=== PATIENT | female | born 1990 | race African-American/Black ===

== ENCOUNTER 2018-01-10 12:34 | Emergency (ER) | payer MEDICAID, MEDICARE ==
[~2018-01-10] VITALS: Ht 157.5 cm; Wt 72.6 kg
[2018-01-10] MEDS ORDERED: Ketorolac 30mg Inj IV ONE (12:45)
[2018-01-10] MEDS ORDERED: Morphine Sulfate 2mg/ml Inj IVP ONE (12:45)
--- NOTE | 2018-01-10 12:50 | Emergency Room Report ---
History of Present Illness General Chief Complaint: Nausea Source: Patient Present Illness HPI 28-year-old female patient presents ER brought in by ambulance complaining of vomiting for the past 4 days. Patient reports epigastric pain during this time. Patient states that she was in a restaurant attempting to eat some food when the symptoms became worse and she had to call the ambulance. Denies coffee -ground emesis or hematemesis. Reports sore throat during this time. reports has been able to keep small amount of water down briefly before vomiting again. States has not taken any medications for relief of symptoms. Denies history of similar symptoms. Denies close contacts with similar symptoms. Denies diarrhea or constipation. Past history of GI problems. Denies history of acid reflux. Denies fever, chest pain, shortness of breath. Report headache and dizziness symptoms that began after vomiting onset. Denies , states she has not been sexually active for "a while". Denies drinking, drugs, smoking marijuana. Denies other acute symptoms. Denies dysuria, hematuria. reports history of MS, not taking any medications currently, states is being followed by her physician for MS symptoms and treatment. Allergies: Coded Allergies: No Known Allergies (Unverified , 01/10/18) Patient History Past Medical History: see triage record Last Menstrual Period: 12/2017 Reviewed Nursing Documentation: PMH: Agreed; PSxH: Agreed Nursing Documentation-PMH Past Medical History: No History, Except For Review of Systems All Other Systems: negative except mentioned in HPI Physical Exam Vital Signs Date Time Temp Pulse Resp B/P (MAP) Pulse Ox O2 Delivery O2 Flow Rate FiO2 01/10/18 12:29 98.1 93 16 111/82 99 Room Air Sp02 EP Interpretation: reviewed, normal General Appearance: well appearing, no apparent distress, alert, GCS 15, non- toxic Head: normocephalic, atraumatic Eyes: bilateral eye normal inspection, bilateral eye PERRL, bilateral eye EOMI ENT: hearing grossly normal, normal pharynx, no angioedema, normal voice, TMs + canals normal, uvula midline, moist mucus membranes Neck: full range of motion Respiratory: lungs clear, normal breath sounds, no rhonchi, no respiratory distress, no accessory muscle use, no wheezing, speaking full sentences Cardiovascular #1: regular rate, rhythm, no edema Gastrointestinal: normal bowel sounds, soft, no mass, non-distended, tenderness - generalized, diffuse Genitourinary: no CVA tenderness Musculoskeletal: back normal, digits/nails normal, gait/station normal, normal range of motion, non-tender Neurologic: alert, oriented x3, responsive, motor strength/tone normal, sensory intact Psychiatric: mood/affect normal Skin: no rash Lymphatic: no adenopathy Medical Decision Making PA Attestation Dr. Sumner is my supervising Physician whom patient management has been discussed with. Diagnostic Impression: Primary Impression: Vomiting Additional Impression: Abdominal pain ER Course Pt. presents to the ED c/o abdominal pain and vomiting. Ddx considered but are not limited to UTI, cholelithiasis, cholecystitis, pancreatitis, appendicitis, diverticulitis, constipation, drug use, esophagitis. negative Rivers sign, patient afebrile, no jaundice, low suspicion for cholecystitis, will not order ultrasound at this time. Begin abdominal pain workup. Provided patient with pain medication. Vital signs: are WNL, pt. is afebrile ORDERS: CBC, CMP, Lipase, UA, CT abdomen pelvis, Zofran, Pepcid and medication. ER COURSE: CBC unremarkable, H&H normal CMP unremarkable, no elevation in LFTS Lipase WNL UA negative for infection, elevated urobilogen noted, denies urinary complaints , low suspicion for UTI, does not require treatment at this time. Urine negative urine drug screen negative except for opioids, likely positive due to or pain provide the patient in ER. Discuss results with patient Provided with capsaicin cream and further pepcid. CT abdomen and pelvis with contrast shows no acute findings, normal appendix patient able tolerate by mouth fluids while in ER. Reports pain symptoms have improved. Patient resting in bed, watching videos on cell phone, nontoxic appearing, in no acute distress. will provide patient with medication at discharge. Informed patient she needs to follow up with primary care provider and discuss referral to GI specialist. Provide with with contact information for [facility] clinics, contact insurance to establish care with primary care provider. Needs further GI evaluation and testing to rule out PUD, H.pylori and other underlying etiology of symptoms. DISCHARGE: Rx provided for Tylenol Rx provided for Zofran Rx provided for Pepcid At this time pt. is stable for d/c to home. Patient resting comfortably, in no acute distress, nontoxic appearing, talking without difficulty. Rx provided to patient. Patient to take medications as instructed Will provide with patient care instructions and any necessary prescriptions. Care plan and follow-up instructions provided. Patient instructed to follow-up with primary care provider in 3 - 5 days. Patient questions asked and answered. Patient reports understanding and agreement to treatment plan. ER precautions given. Patient instructed to return to ER immediately for any new or worsening of symptoms including but not limited to increasing SOB, persistent fever, worsening of pain symptoms, intractable vomiting, blood in stool, urine, and/or emesis. - Please note that this Emergency Department Report was dictated using [employer]forensic identification specialist technology software, occasionally this can lead to erroneous entry secondary to interpretation by the dictation equipment. Labs Test 01/10/18 13:00 01/10/18 15:35 White Blood Count 8.5 K/UL (4.8-10.8) Red Blood Count 4.80 M/UL (4.20-5.40) Hemoglobin 13.7 G/DL (12.0-16.0) Hematocrit 42.5 % (37.0-47.0) Mean Corpuscular Volume 89 FL (80-99) Mean Corpuscular Hemoglobin 28.6 PG (27.0-31.0) Mean Corpuscular Hemoglobin Concent 32.3 G/DL (32.0-36.0) Red Cell Distribution Width 14.0 % (11.6-14.8) Platelet Count 267 K/UL (150-450) Mean Platelet Volume 7.4 FL (6.5-10.1) Neutrophils (%) (Auto) 77.5 % (45.0-75.0) Lymphocytes (%) (Auto) 11.7 % (20.0-45.0) Monocytes (%) (Auto) 9.5 % (1.0-10.0) Eosinophils (%) (Auto) 0.3 % (0.0-3.0) Basophils (%) (Auto) 1.0 % (0.0-2.0) Sodium Level 142 MMOL/L (136-145) Potassium Level 3.5 MMOL/L (3.5-5.1) Chloride Level 105 MMOL/L (98-107) Carbon Dioxide Level 23 MMOL/L (21-32) Anion Gap 14 mmol/L (5-15) Blood Urea Nitrogen 7 mg/dL (7-18) Creatinine 0.7 MG/DL (0.55-1.30) Estimat Glomerular Filtration Rate > 60 mL/min (>60) Glucose Level 98 MG/DL (74-106) Calcium Level 9.7 MG/DL (8.5-10.1) Total Bilirubin 0.6 MG/DL (0.2-1.0) Aspartate Amino Transf (AST/SGOT) 26 U/L (15-37) Alanine Aminotransferase (ALT/SGPT) 17 U/L (12-78) Alkaline Phosphatase 45 U/L (46-116) Total Protein 8.2 G/DL (6.4-8.2) Albumin 4.0 G/DL (3.4-5.0) Globulin 4.2 g/dL Albumin/Globulin Ratio 1.0 (1.0-2.7) Lipase 122 U/L (73-393) Human Chorionic Gonadotropin, Quant < 1 mIU/mL (1-6) Urine Color Brown Urine Appearance Cloudy Urine pH 6 (4.5-8.0) Urine Specific [place]win 1.020 (1.005-1.035) Urine Protein 2+ (NEGATIVE) Urine Glucose (UA) Negative (NEGATIVE) Urine Ketones 4+ (NEGATIVE) Urine Blood 1+ (NEGATIVE) Urine Nitrite Negative (NEGATIVE) Urine Bilirubin 2+ (NEGATIVE) Urine Urobilinogen 8 MG/DL (0.0-1.0) Urine Leukocyte Esterase 1+ (NEGATIVE) Urine HCG, Qualitative Negative (NEGATIVE) CT/MRI/US Diagnostic Results CT/MRI/US Diagnostic Results : Imaging Test Ordered: CT abdomen Impression no acute findings, normal appendix Last Vital Signs Date Time Temp Pulse Resp B/P (MAP) Pulse Ox O2 Delivery O2 Flow Rate FiO2 01/10/18 12:29 98.1 93 16 111/82 99 Room Air Disposition: HOME, SELF-CARE Condition: Stable Scripts Famotidine (PEPCID AC) 10 Mg Tablet 10 MG PO DAILY, #24 TAB Prov: Pj Esposito P.A. 01/10/18 Ondansetron* (ZOFRAN*) 4 Mg Tablet 4 MG ORAL Q6H PRN for Nausea & Vomiting, #12 TAB Prov: Pj Esposito P.A. 01/10/18 Acetaminophen* (TYLENOL EXTRA STRENGTH*) 500 Mg Tablet 500 MG ORAL Q8H PRN for Prn Headache/Temp > 101, #30 TAB 0 Refills Prov: Pj Esposito 01/10/18 Patient Instructions: Abdominal Pain, Adult, [id number], Nausea and Vomiting , Adult Additional Instructions: Followup with primary care provider in 3 -5 days for further treatment and referral to GI. Discuss testing for H.pylori. Keep food journal of foods eaten and times of symptom onset. Take medications as directed. Patient questions asked and answered. Drink fluids as tolerated to prevent dehydration. Take Tylenol OTC for pain, [place]. Avoid spicy foods, avoid dairy foods. BRAT diet: bananas, rice, apple sauce, toast. Avoid spicy foods, avoid dairy, avoid alcohol. Do not eat late night meals. Elevate head of bed when sleeping. ER precautions given, patient instructed to return to ER immediately for any new or worsening of symptoms including but not limited to chest pain, SOB, abdominal pain, blood in vomit. Pj Esposito Jan 10, 2018 12:50
[2018-01-10] MEDS ORDERED: Isovue-300 100ml vial INJ PRN (13:00)
[2018-01-10 13:17] LABS: EOSINOPHILS % (AUTO) 0.3 % (0.0-3.0); HEMATOCRIT 42.5 % (37.0-47.0); HEMOGLOBIN 13.7 G/DL (12.0-16.0); LYMPHOCYTES % (AUTO) 11.7 % (20.0-45.0); MEAN CORPUSCULAR VOLUME 89 FL (80-99); MONOCYTES % (AUTO) 9.5 % (1.0-10.0); NEUTROPHILS % (AUTO) 77.5 % (45.0-75.0); PLATELET COUNT 267 K/UL (150-450); WHITE BLOOD COUNT 8.5 K/UL (4.8-10.8)
[2018-01-10 13:40] LABS: ANION GAP 14 mmol/L (5-15); BLOOD UREA NITROGEN 7 mg/dL (7-18); CALCIUM 9.7 MG/DL (8.5-10.1); CARBON DIOXIDE 23 MMOL/L (21-32); CHLORIDE 105 MMOL/L (98-107); CREATININE 0.7 MG/DL (0.55-1.30); POTASSIUM 3.5 MMOL/L (3.5-5.1); SODIUM 142 MMOL/L (136-145)
[2018-01-10 13:45] LABS: ALANINE AMINOTRANSFERASE 17 U/L (12-78); ALKALINE PHOSPHATASE 45 U/L (46-116); ASPARTATE AMINO TRANSFERASE 26 U/L (15-37); BILIRUBIN,TOTAL 0.6 MG/DL (0.2-1.0)
[2018-01-10] MEDS ORDERED: Lidocaine 2% Visc 15ml soln ORAL ONE (15:00)
[2018-01-10 15:55] LABS: APPEARANCE,URINE CLOUDY; BILIRUBIN, URINE 2+ (NEGATIVE); COLOR,URINE BROWN; GLUCOSE, URINE (UA) NEGATIVE (NEGATIVE); KETONES,URINE 4+ (NEGATIVE); LEUKOCYTE ESTERASE ,URINE 1+ (NEGATIVE); NITRITE,URINE NEGATIVE (NEGATIVE); PH,URINE 6 (4.5-8.0); PROTEIN,URINE 2+ (NEGATIVE); UROBILINOGEN,URINE 8 MG/DL (0.0-1.0)
[2018-01-10 16:00] VITALS: BP 110/95
[2018-01-10] MEDS ORDERED: ZOFRAN4 M3 ORAL (17:44)
[2018-01-10] MEDS ORDERED: TYLENOL EXTRA500 MG ORAL (17:44)
[2018-01-10] MEDS ORDERED: PEPCID AC10 MG PO (17:47)
[2018-01-10] MEDS ORDERED: Capsaicin 0.075% Cream TOPIC ONE (18:00)
[2018-01-10 18:15] VITALS: BP 106/73
--- NOTE | 2018-01-11 09:48 | Diagnostic Imaging Report ---
Indication: Abdominal pain Technique: Continuous helical transaxial imaging of the abdomen and pelvis was obtained from the lung bases to the pubic symphysis during intravenous contrast administration. Coronal 2-D reformats were also obtained. Study obtained in a Siemens sensation [address] Automatic Exposure Control was utilized. Total Dose length Product (DLP): 622.[address] Dose Index Volume (CTDIvol): 13.01 mGy Comparison: None Findings: Lung bases are clear. There is focal fat within the left lobe of the liver. No hydronephrosis or nephrolithiasis identified. Small umbilical hernia containing fat demonstrated. No free fluid or free air seen. Solid organs. Unremarkable. Normal appendix noted. No evidence of bowel obstruction. Uterus is retroverted. IMPRESSION: No acute findings. Incidental findings as above The CT scanner at [facility] is accredited by the [employer] and the scans are performed using dose optimization techniques as appropriate to a performed exam including Automatic Exposure control.
== END 2018-01-10 18:15 | disposition home or self-care (01) ==
LOC: EDBD 12:34 → EMR 14:30
DX: R11.2 Nausea with vomiting, unspecified (principal); R10.13 Epigastric pain
CPT/HCPCS: 36415; 74177; 80053; 80307; 81003; 81025; 83690; 84702; 85025; 87086; 87181; 96361; 96374; 96375; 96376; 99284; J1885; J2270; J2405; Q9967; S0028; 96360